=== PATIENT | female | born 1945 | race Caucasian/White ===

== ENCOUNTER 2020-03-28 13:26 | Emergency (ER) | payer MEDICARE, OTHER ==
[~2020-03-28] VITALS: Ht 165.1 cm; Wt 72.5 kg
[2020-03-28 14:29] LABS: BASOPHILS % (AUTO) 0 % (0-1); EOSINOPHILS % (AUTO) 2 % (1-7); LYMPHOCYTES % (AUTO) 6 % (22-44); MEAN CORPUSCULAR HEMOGLOBIN 28.6 pg (27.0-34.8); MEAN CORPUSCULAR HGB CONC 32.8 g/dL (32.4-35.8); MEAN PLATELET VOLUME 8.9 fL (7.4-10.4); MONOCYTES % (AUTO) 8 % (2-9); NEUTROPHILS % (AUTO) 84 % (42-75); PLATELET COUNT 289 x10^3/uL (130-400); RED BLOOD COUNT 5.41 x10^6/uL (3.82-5.3); RED CELL DISTRIBUTION WIDTH 14.3 % (9.6-15.2)
[2020-03-28 14:39] LABS: ALBUMIN 3.6 g/dL (3.4-5.0); ANION GAP 6 mmol/L (5-15); CALCIUM 8.9 mg/dL (8.5-10.1); CHLORIDE 105 mmol/L (98-107)
[2020-03-28 14:42] LABS: ALANINE AMINOTRANSFERASE 25 U/L (12-78); ALKALINE PHOSPHATASE 85 U/L (45-117); BILIRUBIN,TOTAL 0.5 mg/dL (0.2-1.0); CREATININE 0.95 mg/dL (0.55-1.02); TOTAL PROTEIN 7.2 g/dL (6.4-8.2)
--- NOTE | 2020-03-28 14:47 | NUR ---
PT C/O BODY ACHES, WEAKNESS, N/V, AND DIARRHEA. PT DENIES SOB OR FEVER. PT STATES SHE HAD CHEST PAIN YESTERDAY MORNING AND THIS AM, BUT IT RESOLVED ON ITS OWN. PT SAYS SHE IS FEELING BETTER NOW, BUT IT WAS BAD THIS AM AND YESTERDAY AM.
[2020-03-28 15:18] LABS: MD SCAN
[2020-03-28 15:47] LABS: MICROSCOPIC INDICATED
[2020-03-28 16:54] VITALS: BP 117/49
--- NOTE | 2020-03-28 17:12 | NUR ---
PT REC'VD DISCHARGE INSTRUCTIONS AND EDUCATION. PT HAD NO FURTHER QUESSTIONS. PT AMBULATED TO DC AREA, STEADY GAIT.
== END 2020-03-28 17:14 | disposition home or self-care (01) ==
LOC: ED 16:50
DX: B34.9 Viral infection, unspecified (principal); Z20.828 Contact with and (suspected) exposure to other viral communicable diseases; R05 Cough; M79.10 Myalgia, unspecified site; R11.2 Nausea with vomiting, unspecified; R19.7 Diarrhea, unspecified; R00.0 Tachycardia, unspecified; Z87.891 Personal history of nicotine dependence
CPT/HCPCS: 36415; 71045; 80053; 81001; 85025; 87086; 87147; 87635; 93005; 99285